=== PATIENT | female | born 1990 | race Hispanic/Latino ===

== ENCOUNTER 2022-04-04 09:32 | Emergency (ER) | payer MEDICAID ==
[2022-04-04] MEDS ORDERED: HYDROmorphone 1 MG/1 ML INJ IV ONE ×4 (10:33→15:29)
[2022-04-04] MEDS ORDERED: SODIUM CHLORIDE 0.9% 1000 ML 1,000 ML IV ONE (10:33)
[2022-04-04] MEDS ORDERED: ONDANSETRON 4 MG/2 ML INJ IV ONE (10:33)
--- NOTE | 2022-04-04 10:35 | Emergency Department Report ---
<HENNY ALVAREZ - Last Filed: 04/04/22 14:49> ED Abdominal Pain HPI - General Chief Complaint: Abdominal Pain Stated Complaint: ABDOMINAL PAIN Time Seen by Provider: 04/04/22 10:28 Source: patient, EMS, old records reviewed (None available) Mode of arrival: Ambulatory Limitations: No Limitations - History of Present Illness Initial Comments: 31-year-old female the past medical history of colitis and ovarian cysts and previous ex lap for unclear reason presents to the hospital complaining of severe 10/10 lower abdominal pain since this morning with associated nausea. Patient denies vomiting, diarrhea, or dysuria. Very difficult to obtain details of history of present illness due to severe pain and distress. Patient received fentanyl 50 mcg in route to the hospital without significant improvement. No previous medical record available for review at this time Severity scale (0 -10): 10 - Related Data Previous Rx's Medication Instructions Recorded Last Taken Type Ketorolac [Toradol] 10 mg PO Q6H PRN #20 tab 04/04/22 Unknown Rx Ondansetron [Zofran Odt] 4 mg PO Q8HR PRN #20 tab.rapdis 04/04/22 Unknown Rx Oxycodone HCl/Acetaminophen 1 each PO Q6HR PRN #15 tab 04/04/22 Unknown Rx [Percocet 10/325 mg] Tamsulosin [Flomax] 0.4 mg PO QDAY #10 cap 04/04/22 Unknown Rx Allergies Allergy/AdvReac Type Severity Reaction Status Date / Time meperidine [From Demerol] Allergy Rash Verified 04/04/22 09:40 watermelon Allergy Itching Verified 04/04/22 09:38 ED Review of Systems Comment: All other systems reviewed and negative ED Past Medical Hx - Past Medical History Previous Medical History?: Yes Hx Hypertension: No Hx CVA: No Hx Heart Attack/AMI: No Hx Congestive Heart Failure: No Hx Diabetes: No Hx Deep Vein Thrombosis: No Hx Pulmonary Embolism: No Hx GERD: No Hx Liver Disease: No Hx Renal Disease: No Hx of Cancer: No Hx Sickle Cell Disease: No Hx Arthritis: No Hx Headaches / Migraines: No Hx Seizures: No Hx Kidney Stones: No Hx Psychiatric Treatment: No Hx Asthma: No Hx COPD: No Hx Tuberculosis: No Hx Dementia: No Hx HIV: No Additional medical history: COLITIS, OVARIAN CYST - Surgical History Past Surgical History?: Yes Hx Coronary Stent: No Hx Open Heart Surgery: No Hx Pacemaker: No Hx Internal Defibrillator: No Hx Cholecystectomy: No Hx Appendectomy: No Hx Breast Surgery: No - Medications Home Medications: Home Medications Medication Instructions Recorded Confirmed Last Taken Type Ketorolac [Toradol] 10 mg PO Q6H PRN #20 tab 04/04/22 Unknown Rx Ondansetron [Zofran Odt] 4 mg PO Q8HR PRN #20 tab.rapdis 04/04/22 Unknown Rx Oxycodone HCl/Acetaminophen 1 each PO Q6HR PRN #15 tab 04/04/22 Unknown Rx [Percocet 10/325 mg] Tamsulosin [Flomax] 0.4 mg PO QDAY #10 cap 04/04/22 Unknown Rx ED Physical Exam - General Limitations: No Limitations - Other Other exam information: General: Distressed secondary to pain Head: Atraumatic Eyes: normal appearance ENT: Moist mucous membranes Neck: Normal appearance, no midline tenderness Chest: Clear to auscultation bilaterally CV: Tachycardic regular rate Abdomen: Soft, normal bowel sounds, lower abdominal tenderness Back: Normal inspection Extremity: Normal inspection, full range of motion Neuro: Alert O x 3, no facial asymmetry, speech clear, no gross motor sensory deficit Skin: No rash ED Course - Reevaluation(s) Reevaluation #1: 04/04/22 14:49 Patient had extravasation patient complains of some right arm swelling and pain status post was IV contrast extravasation. I discussed case with research food technologist. She states that only 20 mL of contrast injected during IV infiltration. No signs of compartment syndrome on exam. Nurse instructed to place warm compress ED Medical Decision Making - Lab Data Result diagrams: 04/04/22 11:03 04/04/22 11:03 Lab Results 04/04/22 04/04/22 04/04/22 Range/Units 11:03 11:03 11:03 WBC 13.0 H (4.5-11.0) K/mm3 RBC 5.08 H (3.65-5.03) M/mm3 Hgb 15.8 H (10.1-14.3) gm/dl Hct 48.3 H (30.3-42.9) % MCV 95 (79-97) fl MCH 31 (28-32) pg MCHC 33 (30-34) % RDW 12.7 L (13.2-15.2) % Plt Count 333 (140-440) K/mm3 Lymph % (Auto) Credit Administration Officer Blair % (Auto) Credit Administration Officer Eos % (Auto) Credit Administration Officer Baso % (Auto) Credit Administration Officer Lymph # (Auto) Credit Administration Officer Blair # (Auto) Credit Administration Officer Eos # (Auto) Credit Administration Officer Baso # (Auto) Credit Administration Officer Seg Neutrophils % Credit Administration Officer Seg Neutrophils # Credit Administration Officer Sodium 140 (137-145) mmol/L Potassium 4.2 (3.6-5.0) mmol/L Chloride 60.0 L (98-107) mmol/L Carbon Dioxide 19 L (22-30) mmol/L Anion Gap 3 mmol/L BUN 13 (7-17) mg/dL Creatinine 0.7 (0.6-1.2) mg/dL Estimated GFR > 60 ml/min BUN/Creatinine Ratio 19 % Glucose 101 H (65-100) mg/dL Calcium 9.6 (8.4-10.2) mg/dL Total Bilirubin 0.60 (0.1-1.2) mg/dL Direct Bilirubin < 0.2 (0-0.2) mg/dL Indirect Bilirubin 0.4 mg/dL AST 12 (5-40) units/L ALT < 5 L (7-56) units/L Alkaline Phosphatase 51 (35-129) units/L Total Protein 7.4 (6.3-8.2) g/dL Albumin 5.0 (3.9-5) g/dL Albumin/Globulin Ratio 2.1 % Lipase 32 (13-60) units/L HCG, Qual Negative (Negative) Urine Color (Yellow) Urine Turbidity (Clear) Urine pH (5.0-7.0) Ur Specific [place] (1.003-1.030) Urine Protein (Negative) mg/dL Urine Glucose (UA) (Negative) mg/dL Urine Ketones (Negative) mg/dL Urine Blood (Negative) Urine Nitrite (Negative) Urine Bilirubin (Negative) Urine Urobilinogen (<2.0) mg/dL Ur Leukocyte Esterase (Negative) Urine WBC (Auto) (0.0-6.0) /HPF Urine RBC (Auto) (0.0-6.0) /HPF U Epithel Cells (Auto) (0-13.0) /HPF Urine Mucus /HPF 04/04/22 Range/Units Unknown WBC (4.5-11.0) K/mm3 RBC (3.65-5.03) M/mm3 Hgb (10.1-14.3) gm/dl Hct (30.3-42.9) % MCV (79-97) fl MCH (28-32) pg MCHC (30-34) % RDW (13.2-15.2) % Plt Count (140-440) K/mm3 Lymph % (Auto) Blair % (Auto) Eos % (Auto) Baso % (Auto) Lymph # (Auto) Blair # (Auto) Eos # (Auto) Baso # (Auto) Seg Neutrophils % Seg Neutrophils # Sodium (137-145) mmol/L Potassium (3.6-5.0) mmol/L Chloride (98-107) mmol/L Carbon Dioxide (22-30) mmol/L Anion Gap mmol/L BUN (7-17) mg/dL Creatinine (0.6-1.2) mg/dL Estimated GFR ml/min BUN/Creatinine Ratio % Glucose (65-100) mg/dL Calcium (8.4-10.2) mg/dL Total Bilirubin (0.1-1.2) mg/dL Direct Bilirubin (0-0.2) mg/dL Indirect Bilirubin mg/dL AST (5-40) units/L ALT (7-56) units/L Alkaline Phosphatase (35-129) units/L Total Protein (6.3-8.2) g/dL Albumin (3.9-5) g/dL Albumin/Globulin Ratio % Lipase (13-60) units/L HCG, Qual (Negative) Urine Color Cari (Yellow) Urine Turbidity Slightly-cloudy (Clear) Urine pH 5.0 (5.0-7.0) Ur Specific [place] 1.027 (1.003-1.030) Urine Protein 30 mg/dl (Negative) mg/dL Urine Glucose (UA) Neg (Negative) mg/dL Urine Ketones Tr (Negative) mg/dL Urine Blood Lg (Negative) Urine Nitrite Neg (Negative) Urine Bilirubin Neg (Negative) Urine Urobilinogen 2.0 (<2.0) mg/dL Ur Leukocyte Esterase Neg (Negative) Urine WBC (Auto) 2.0 (0.0-6.0) /HPF Urine RBC (Auto) < 182.0 (0.0-6.0) /HPF U Epithel Cells (Auto) 13.0 (0-13.0) /HPF Urine Mucus 2+ /HPF - Radiology Data Radiology results: report reviewed CT ABDOMEN AND PELVIS WITH CONTRAST INDICATION / CLINICAL INFORMATION: severe lower abd pain. TECHNIQUE: Axial CT images were obtained through the abdomen and pelvis after 100 cc Omnipaque [address] scans at this location are performed using CT dose reduction for ALARA by means of automated exposure control. COMPARISON: No relevant prior imaging study available. FINDINGS: LOWER CHEST: No significant abnormality. LIVER: The liver is incompletely included. No significant abnormality of the visualized portions of the liver. GALLBLADDER: No significant abnormality. BILE DUCTS: No significant abnormality. PANCREAS: No significant abnormality. SPLEEN: No significant abnormality. ADRENALS: No significant abnormality. RIGHT KIDNEY/URETER: No significant abnormality. LEFT KIDNEY/URETER: A 2 mm left UVJ stone is seen with secondary moderate hydroureteronephrosis and decreased attenuation throughout the left kidney. No other significant abnormality. STOMACH/SMALL BOWEL: No significant abnormality. COLON: No significant abnormality. APPENDIX: No significant abnormality. PERITONEUM: No free fluid. No free air. No fluid collection. LYMPH NODES: No significant adenopathy. VASCULATURE: No significant abnormality. URINARY BLADDER: No significant abnormality. REPRODUCTIVE ORGANS: No significant abnormality. ADDITIONAL FINDINGS: None. BONES: No significant abnormality IMPRESSION: Moderately obstructive 2 mm left UVJ stone. No other acute findings to explain the patient's pain. - Medical Decision Making 31-year-old female presents to the hospital with left lower quadrant pain secondary to kidney stone. Mild signs of obstruction. No signs of infection. Patient requiring lot of narcotic medications but states she has a history of "a high tolerance" to pain medication. Left-sided kidney stone is 2 mm at the UV junction. There is no indication for admission as long as her pain and vomiting are controlled. Patient givien an additional round of pain medication and prepped for discharge and will be signed out to my colleague Dr Melgoza for reassessment Critical Care Time: No ED Disposition Clinical Impression: Renal colic on left side Disposition: 01 HOME / SELF CARE / HOMELESS Is pt being admited?: No Does the pt Need Aspirin: No Condition: Good Instructions: Renal Colic, [id number], Abdominal Pain (ED) Additional Instructions: Take the medication as prescribed. Follow-up with your doctor or doctor/clinic provided. Return if symptoms worsen as indicated by your discharge instructions. Prescriptions: Tamsulosin [Flomax] 0.4 mg PO QDAY #10 cap Oxycodone HCl/Acetaminophen [Percocet 10/325 mg] 1 each PO Q6HR PRN #15 tab PRN Reason: Pain Ketorolac [Toradol] 10 mg PO Q6H PRN #20 tab PRN Reason: Pain Ondansetron [Zofran Odt] 4 mg PO Q8HR PRN #20 tab.rapdis PRN Reason: Nausea And Vomiting Referrals: PRIMARY CAREMD [Primary Care Provider] - 3-5 Days STEVE SMITH MD [Staff Physician] - 3-5 Days (Urologist) <IRMA MELGOZA - Last Filed: 04/04/22 15:31> ED Review of Systems ROS: Stated complaint: ABDOMINAL PAIN Other details as noted in HPI ED Course Vital Signs 04/04/22 09:45 Temperature 98.8 F Pulse Rate 68 Respiratory 18 Rate Blood Pressure 140/95 [Left] O2 Sat by Pulse 100 Oximetry - Reevaluation(s) Reevaluation #1: 04/04/22 15:30 The patient is seen and examined. She is not actively vomiting. She is still having pain. Additional pain medication ordered. Patient advised as to the natural history of renal colic. She is advised to closely follow-up with a urologist. This hospital does not have urology on-call for ER consultation. Patient advised to go to [facility], or urologist in her network to closely follow-up. Chaperoned by nurse reviewed. All questions answered. Return precautions are reviewed. Plan to discharge as per Dr. Bismark dietrich ED Medical Decision Making - Lab Data Result diagrams: 04/04/22 11:03 04/04/22 11:03 Critical care attestation.: If time is entered above; I have spent that time in minutes in the direct care of this critically ill patient, excluding procedure time. ED Disposition Is pt being admited?: No Does the pt Need Aspirin: No
[2022-04-04 11:53] LABS: Bilirubin,Urine NEG (Negative); Blood,Urine LG (Negative); Color,Urine Amber (Yellow)
[2022-04-04 11:55] LABS: Mucus,Urine 2+ /HPF
[2022-04-04 11:59] LABS: RBC,Urine < 182.0 /HPF (0.0-6.0)
[2022-04-04 12:02] LABS: Blood Urea Nitrogen 13 mg/dL (7-17); Calcium 9.6 mg/dL (8.4-10.2); Hemolysis Index 18
[2022-04-04 12:24] LABS: Hematocrit 48.3 % (30.3-42.9); Hemoglobin 15.8 gm/dl (10.1-14.3); Mean Corpuscular HGB Conc 33 % (30-34); Mean Corpuscular Volume 95 fl (79-97); Platelet Count 333 K/mm3 (140-440); Red Blood Count 5.08 M/mm3 (3.65-5.03); Red Cell Distribution Width 12.7 % (13.2-15.2)
[2022-04-04 12:33] LABS: BUN/Creatinine Ratio 19
[2022-04-04 12:34] LABS: Alanine Aminotransferase < 5 units/L (7-56); Bilirubin,Direct < 0.2 mg/dL (0-0.2)
--- NOTE | 2022-04-04 13:50 | Cat Scan Report ---
CT ABDOMEN AND PELVIS WITH CONTRAST INDICATION / CLINICAL INFORMATION: severe lower abd pain. TECHNIQUE: Axial CT images were obtained through the abdomen and pelvis after 100 cc Omnipaque [address] scans at this location are performed using CT dose reduction for ALARA by means of automated exposure control. COMPARISON: No relevant prior imaging study available. FINDINGS: LOWER CHEST: No significant abnormality. LIVER: The liver is incompletely included. No significant abnormality of the visualized portions of t he liver. GALLBLADDER: No significant abnormality. BILE DUCTS: No significant abnormality. PANCREAS: No significant abnormality. SPLEEN: No significant abnormality. ADRENALS: No significant abnormality. RIGHT KIDNEY/URETER: No significant abnormality. LEFT KIDNEY/URETER: A 2 mm left UVJ stone is seen with secondary moderate hydroureteronephrosis and d ecreased attenuation throughout the left kidney. No other significant abnormality. STOMACH/SMALL BOWEL: No significant abnormality. COLON: No significant abnormality. APPENDIX: No significant abnormality. PERITONEUM: No free fluid. No free air. No fluid collection. LYMPH NODES: No significant adenopathy. VASCULATURE: No significant abnormality. URINARY BLADDER: No significant abnormality. REPRODUCTIVE ORGANS: No significant abnormality. ADDITIONAL FINDINGS: None. BONES: No significant abnormality IMPRESSION: Moderately obstructive 2 mm left UVJ stone. No other acute findings to explain the patient's pain. Signer Name: Parth Garrett MD Signed: 04/04/2022 1:45 PM Workstation Name: [id number]
[2022-04-04] MEDS ORDERED: KETOROLAC 30 MG/1 ML INJ IV ONE (13:55)
[2022-04-04] MEDS ORDERED: diphenhydrAMINE 50 MG/ML VIAL IV ONE (14:21)
[2022-04-04] MEDS ORDERED: FLUCONAZOLE 200 MG TAB PO STA (15:45)
[2022-04-04 16:18] VITALS: BP 138/87
== END 2022-04-04 16:18 | disposition home or self-care (01) ==
LOC: ED 09:32
DX: N23 Unspecified renal colic (principal); Z88.6 Allergy status to analgesic agent; Z91.02 Food additives allergy status; Z79.899 Other long term (current) drug therapy
CPT/HCPCS: 36415; 74177; 80048; 80076; 81001; 83690; 84703; 85025; 96361; 96374; 96375; 96376; 99284; J1170; J1200; J1885; J2405; J7030; Q9967